=== PATIENT | male | born 1955 | race Caucasian/White ===

== ENCOUNTER 2018-06-13 21:49 | Inpatient (IN) | payer OTHER ==
[~2018-06-13] VITALS: Ht 170.2 cm; Wt 95.0 kg
[2018-06-13] MEDS ORDERED: CLINDAMYCIN PMX 600MG/50ML 50 ML ONE (22:25)
[2018-06-13] MEDS ORDERED: IBUPROFEN 200 MG TABLET ONE (22:25)
[2018-06-13] MEDS ORDERED: ACETAMINOPHEN 500 MG TABLET ONE (22:25)
[2018-06-13] MEDS ORDERED: IBUPROFEN 200 MG TABLET PO ONE (22:30)
[2018-06-13] MEDS ORDERED: ACETAMINOPHEN 500 MG TABLET PO ONE (22:30)
[2018-06-13] MEDS ORDERED: CLINDAMYCIN PMX 600MG/50ML 50 ML IV ONE (22:30)
[2018-06-13 22:36] LABS: BASOPHILS # (AUTO) 0.01 x10^3/uL (0-0.1); BASOPHILS % (AUTO) 0 % (0-1); EOSINOPHILS % (AUTO) 0 % (1-7); LYMPHOCYTES # (AUTO) 0.97 x10^3/uL (1-3.4); LYMPHOCYTES % (AUTO) 7 % (22-44); MD NO; MEAN CORPUSCULAR HEMOGLOBIN 32.9 pg (27.5-34.5); MEAN CORPUSCULAR HGB CONC 34.8 g/dL (33.2-36.2); MEAN CORPUSCULAR VOLUME 94.5 fL (81-97); MEAN PLATELET VOLUME 7.6 fL (7.4-10.4); MONOCYTES # (AUTO) 0.74 x10^3/uL (0.2-0.8); MONOCYTES % (AUTO) 6 % (2-9); NEUTROPHILS # (AUTO) 11.76 x10^3/uL (1.8-6.8); NEUTROPHILS % (AUTO) 87 % (42-75); PLATELET COUNT 275 x10^3/uL (130-400); RED BLOOD COUNT 4.06 x10^6/uL (4.38-5.82); RED CELL DISTRIBUTION WIDTH 12.5 % (9.4-14.8)
[2018-06-13 22:47] LABS: ALBUMIN 3.6 g/dL (3.4-5.0); ANION GAP 9 mmol/L (5-15); CHLORIDE 101 mmol/L (98-107); CREATININE 1.08 mg/dL (0.7-1.3)
--- NOTE | 2018-06-13 22:55 | NUR ---
PT TO ULTRASOUND
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
--- NOTE | 2018-06-13 23:16 | NUR ---
SEAL EXTRUSION OPERATOR NOTIFIED UNSUCCESFUL ATTEMPT AT BLOOD DRAW FOR BLOOD C/X, SEAL EXTRUSION OPERATOR TO DRAW 2ND SET OF BLOOD C/X.
[2018-06-13] MEDS ORDERED: PRAV10TA2 PO (23:54)
[2018-06-13] MEDS ORDERED: ASPI-515 PO (23:54)
[2018-06-13] MEDS ORDERED: LISI1TAB5 PO (23:54)
[2018-06-14] VITALS (7 sets, daily range): BP systolic 105–119; BP diastolic 52–69
[2018-06-14] MEDS ORDERED: BISACODYL 10 MG SUPP PR PRN
[2018-06-14] MEDS ORDERED: ONDANSETRON ODT 4 MG PO PRN
[2018-06-14] MEDS ORDERED: POLYETHYLENE GLYCOL 17 GM PACKET PO PRN
[2018-06-14] MEDS ORDERED: AMPICILLIN/SULBACTAM 3 GM in SODIUM CHLORIDE 0.9% 100 ML IV SCH
[2018-06-14] MEDS ORDERED: ACETAMINOPHEN 325 MG TABLET PO PRN
[2018-06-14] MEDS: SODIUM CHLORIDE 0.9% 1,000 ML IV SCH ×2 (01:12→10:04)
[2018-06-14] MEDS: HEPARIN 5,000 UNITS/ML, 1ML SQ SCH ×2 (01:26→10:03)
[2018-06-14 04:47] LABS: MEAN CORPUSCULAR HEMOGLOBIN 32.8 pg (27.5-34.5); MEAN CORPUSCULAR HGB CONC 34.2 g/dL (33.2-36.2); MEAN CORPUSCULAR VOLUME 95.9 fL (81-97); MEAN PLATELET VOLUME 7.5 fL (7.4-10.4); PLATELET COUNT 243 x10^3/uL (130-400); RED BLOOD COUNT 3.83 x10^6/uL (4.38-5.82); RED CELL DISTRIBUTION WIDTH 12.7 % (9.4-14.8)
[2018-06-14 05:00] LABS: CHLORIDE 102 mmol/L (98-107)
[2018-06-14 05:04] LABS: ALANINE AMINOTRANSFERASE 37 U/L (12-78); ALBUMIN 3.1 g/dL (3.4-5.0); ALKALINE PHOSPHATASE 51 U/L (45-117); ANION GAP 7 mmol/L (5-15); BILIRUBIN,TOTAL 0.7 mg/dL (0.2-1.0); CALCIUM 8.7 mg/dL (8.5-10.1); CREATININE 1.32 mg/dL (0.7-1.3); TOTAL PROTEIN 6.7 g/dL (6.4-8.2)
[2018-06-14 06:04] LABS: BASOPHILS # (AUTO) 0.01 x10^3/uL (0-0.1); BASOPHILS % (AUTO) 0 % (0-1); EOSINOPHILS # (AUTO) 0.02 x10^3/uL (0-0.4); EOSINOPHILS % (AUTO) 0 % (1-7); LYMPHOCYTES # (AUTO) 1.72 x10^3/uL (1-3.4); LYMPHOCYTES % (AUTO) 13 % (22-44); MD SCAN; MONOCYTES # (AUTO) 1.08 x10^3/uL (0.2-0.8); MONOCYTES % (AUTO) 8 % (2-9); NEUTROPHILS # (AUTO) 10.78 x10^3/uL (1.8-6.8); NEUTROPHILS % (AUTO) 79 % (42-75)
[2018-06-14] MEDS ORDERED: AMOX1TAB64 PO (07:33)
[2018-06-14] MEDS ORDERED: SENNA/DOCUSATE TABLET PO SCH (09:00)
[2018-06-14] MEDS: AMPICILLIN/SULBACTAM 1,500 MG in SODIUM CHLORIDE 0.9% 50 ML IV SCH ×2 (09:52→14:42)
[2018-06-14] MEDS: KETOROLAC 30 MG/1 ML IV PRN ×2 (10:10→15:42)
== END 2018-06-14 17:50 | disposition home or self-care (01) | DRG 872 ==
LOC: ED 23:28 → EDIP 23:50 → 4NOR 06-14 00:29
PROVIDERS: ADMIT Hospitalist; ATTEND Hospitalist
DX: A41.9 Sepsis, unspecified organism (principal); L03.115 Cellulitis of right lower limb; E87.1 Hypo-osmolality and hyponatremia; D64.9 Anemia, unspecified; E78.5 Hyperlipidemia, unspecified; Z66 Do not resuscitate; I10 Essential (primary) hypertension
CPT/HCPCS: 36415; 80048; 80053; 82040; 83605; 85025; 86140; 87040; 93005; J0295; J1644; J1885; J7030